=== PATIENT | male | born 1985 | race Caucasian/White ===

== ENCOUNTER 2019-07-11 11:02 | Emergency (ER) | payer BC ==
[~2019-07-11] VITALS: Ht 180.3 cm; Wt 87.0 kg
[2019-07-11 11:16] VITALS: BP 135/83
--- NOTE | 2019-07-11 11:52 | NUR ---
Silvestre tape splint placed by AMY Craft.
== END 2019-07-11 11:54 | disposition home or self-care (01) ==
LOC: ER 11:03
DX: S63.256A Unspecified dislocation of right little finger, initial encounter (principal); M25.341 Other instability, right hand; W23.0XXA Caught, crushed, jammed, or pinched between moving objects, initial encounter; Y93.02 Activity, running; Y92.89 Other specified places as the place of occurrence of the external cause; Y99.9 Unspecified external cause status
CPT/HCPCS: 73140; 99283